=== PATIENT | male | born 1955 | race Caucasian/White ===

== ENCOUNTER 2021-12-07 21:44 | Inpatient (IN) | payer MEDICARE ==
[~2021-12-07] VITALS: Ht 170.2 cm; Wt 143.8 kg
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
[2021-12-07 22:30] VITALS: BP 144/99
[2021-12-07] MEDS ORDERED: MAG HYDROX/AL HYDROX/SIMETH 30 ML UDC PO PRN (23:00)
[2021-12-07] MEDS ORDERED: MAGNESIUM HYDROXIDE 30 ML UDC PO PRN (23:00)
[2021-12-07] MEDS ORDERED: BLOOD SUGAR DIAGNOSTIC 1 EACH STRIP IN ONE (23:30)
[2021-12-07] MEDS: clonazePAM 0.5 MG TABLET PO PRN (23:40)
--- NOTE | 2021-12-07 23:42 | NUR ---
GPS RN NOTE, PATIENT HAS A COMPLAINT OF FEELING ANXIOUS AND IS REQUESTING KLONOPIN AT THIS TIME. PATIENT VITAL SIGNS ARE STABLE. GAVE KLONOPIN 0.5MG PO Q4HR PRN ORDERED. WILL REASSESS FOR ANXIETY AND I WILL CONTINUE TO MONITOR THIS PATIENT WITH THE HELP OF STAFF.
[2021-12-08] MEDS: TEMAZEPAM 15 MG CAPSULE PO PRN (01:31)
--- NOTE | 2021-12-08 01:35 | NUR ---
GPS RN NOTE, PATIENT HAS A COMPLAINT OF NOT BEING ABLE TO SLEEP AND IS REQUESTING RESTORIL AT THIS TIME. PATIENT VITAL SIGNS ARE STABLE. GAVE RESTORIL 15MG PO HS PRN ORDERED. WILL REASSESS FOR INSOMNIA AND I WILL CONTINUE TO MONITOR THIS PATIENT WITH THE HELP OF STAFF.
[2021-12-08] MEDS: clonazePAM 0.5 MG TABLET PO PRN (03:37)
[2021-12-08 08:00] VITALS: BP 131/75
--- NOTE | 2021-12-08 08:02 | NUR ---
RN OPENING NOTE PATIENT AWAKE IN BED RESTING, A/O X 3. NO S/S OF PAIN NOTED AT THIS TIME. ON ROOM AIR, NO DISTRESS OR SHORTNESS OF BREATH NOTED. PATIENT IS COOPERATIVE AND COMPLIANT WITH MEDICATION. PATIENT DENIES SUICIDE IDEATION AND HOMICIDAL IDEATION AT THIS TIME. PATIENT HAS NO NEEDS AT THIS TIME. PATIENT EDUCATED ON THE USE OF THE CALL REMY. FALL AND SAFETY MEASURES IN PLACE, BED ALARM ON, BED IN LOW AND LOCK POSITION, CALL LIGHT AND TABLE WITHIN EASY REACH, SIDE RAILS UP X2. WILL CONTINUE TO MONITOR Q15 MIN. WITH THE HELP OF STAFF TO MAINTAIN SAFETY.
[2021-12-08] MEDS ORDERED: PNEUMOCOCCAL 23-VAL P-SAC VAC 0.5 ML VIAL SQ ONE (09:00)
--- NOTE | 2021-12-08 09:30 | NUR ---
RN-CO: Noted that patient is extremely demanding, he is entitled and has poor boundaries. He cannot wait and wants to things right away. He believes that he is a "doctor" so his demand should be granted right away. He is non redirectable and easily agitated.
[2021-12-08] MEDS ORDERED: DIVALPROEX SODIUM 125 MG TABLET.DR PO SCH (12:00)
[2021-12-08] MEDS ORDERED: OLANZAPINE 5 MG TABLET PO SCH (12:00)
[2021-12-08] MEDS: OLANZAPINE 5 MG TABLET PO SCH ×2 (12:55→17:22)
[2021-12-08] MEDS: DIVALPROEX SODIUM 125 MG TABLET.DR PO SCH ×2 (12:56→17:21)
--- NOTE | 2021-12-08 13:51 | NUR ---
RN-CO: Patient requested for cough medicine, Dr Taylor ordered Robitussin 5 mg q 6hr as needed, noted.
[2021-12-08] MEDS: GUAIFENESIN/CODEINE 10 ML UDC PO PRN ×2 (13:57→20:24)
[2021-12-08 16:00] VITALS: BP 105/60
--- NOTE | 2021-12-08 16:22 | NUR ---
RN NOTE PATIENT IS SITTING IN ACTIVITY ROOM, PATIENT IS SITTING ON THE BLUE CHAIRS. PATIENT WAS ADVISED NOT TO SIT ON THE BLUE CHAIRS BECAUSE THE WHEELS ARE UNABLE TO BE LOCK, ADVISE PATIENT TO SIT ON A DIFFERENT CHAIR BUT PATIENT REFUSED AND KEPT SITING ON THE BLUE CHAIRS, PATIENT STATED " I WANT TO SIT ON THIS CHAIR, IS GOOD FOR MY BACK, IM NOT A FALL RISK" PATIENT IS VERY UNCOOPERATIVE AND DEMANDING. WE WILL CONTINUE TO MONITOR.
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
--- NOTE | 2021-12-08 18:46 | NUR ---
RN CLOSING NOTE PATIENT AWAKE IN BED RESTING, A/O X 3, PATIENT IS VERY NEEDY AND DEMANDING. NO S/S OF PAIN NOTED AT THIS TIME. ON ROOM AIR, NO DISTRESS OR SHORTNESS OF BREATH NOTED. PATIENT IS COOPERATIVE AND COMPLIANT WITH MEDICATION. ALL SCHEDULE MEDICATIONS ADMINISTERED. PATIENT DENIES SUICIDE IDEATION AND HOMICIDAL IDEATION AT THIS TIME. PATIENT HAS NO NEEDS AT THIS TIME. PATIENT EDUCATED ON THE USE OF THE CALL REMY. FALL AND SAFETY MEASURES IN PLACE, BED ALARM ON, BED IN LOW AND LOCK POSITION, CALL LIGHT AND TABLE WITHIN EASY REACH, SIDE RAILS UP X2. WILL ENDORSE TO FIGHTER PILOT.
--- NOTE | 2021-12-08 20:25 | NUR ---
Pt c/o cough. Robitussin AC syrup 5 ml po prn given as ordered. Will continue to monitor.
[2021-12-08 21:01] VITALS: BP 144/78
--- NOTE | 2021-12-08 21:40 | NUR ---
Post 1 hr Robitussin AC syrup effective. No more coughing. Pt asleep in bed easy to arouse. Frequent visual check done for safety. Will continue to monitor. Will endorse to next shift.
[2021-12-09] MEDS: GUAIFENESIN/CODEINE 10 ML UDC PO PRN ×2 (02:34→13:54)
--- NOTE | 2021-12-09 02:34 | NUR ---
Pt c/o cough and request for Robitussin AC syrup. Robitussin AC syrup 5ml po prn given as ordered. Will continue to monitor.
--- NOTE | 2021-12-09 03:40 | NUR ---
Post 1 hr Robitussin AC syrup effective. No more cough. Pt asleep in bed easy to arouse. Frequent visual check done for safety. Will continue to monitor. Will endorse to next shift.
[2021-12-09 07:57] LABS: ALBUMIN 3.3 g/dL (3.4-5.0); BILIRUBIN,TOTAL 0.3 mg/dL (0.2-1.0); CALCIUM, SERUM 8.8 mg/dL (8.5-10.1); CREATININE 0.9 mg/dL (0.6-1.3); POTASSIUM 4.2 mmol/L (3.5-5.1); TOTAL PROTEIN, SERUM 7.1 g/dL (6.4-8.2)
[2021-12-09 08:00] VITALS: BP 127/69
[2021-12-09 08:06] LABS: BASOPHILS % (AUTO) 0.5 % (0.0-2.0); EOSINOPHILS % (AUTO) 8.8 % (0.0-6.0); HEMATOCRIT 43 % (39-51); HEMOGLOBIN 13.5 g/dL (13.5-17.5); LYMPHOCYTES # (AUTO) 1.6 K/uL (0.8-4.8); LYMPHOCYTES % (AUTO) 22.8 % (20.0-44.0); MEAN CORPUSCULAR HGB CONC 32 g/dl (31.0-36.0); MEAN CORPUSCULAR VOLUME 81 fL (80-96); MONOCYTES # (AUTO) 0.6 K/uL (0.1-1.30); MONOCYTES % (AUTO) 8.2 % (2.0-12.0); NEUTROPHILS # (AUTO) 4.2 K/uL (1.8-8.9); NEUTROPHILS % (AUTO) 59.7 % (43.0-81.0); PLATELET COUNT (AUTO) 327 K/uL (150-450); RED BLOOD CELL COUNT(AUTO) 5.25 MIL/uL (4.5-6.0)
[2021-12-09] MEDS: OLANZAPINE 5 MG TABLET PO SCH ×3 (08:47→17:21)
[2021-12-09] MEDS: DIVALPROEX SODIUM 125 MG TABLET.DR PO SCH ×3 (08:54→17:21)
--- NOTE | 2021-12-09 09:45 | NUR ---
RN NOTE PATIENT IS ANXIOUS AT TIMES BUT EASILY GOES DOWN. PATIENT VERBALIZE FRUSTRATION REGARDING, COMFINEMENT AND SAID HE WANTS TO TALK TO THE GRAIN DRIER OPERATOR. GRAIN DRIER OPERATOR DIDIER NOTIFIED. WILL CONTINUE TO MONITOR PATIENT. PROVIDED WITH CALM AND QUIET ENVIRONMENT.
--- NOTE | 2021-12-09 10:19 | NUR ---
RN NOTE SEEN BY MALINA LOPEZ
--- NOTE | 2021-12-09 10:39 | NUR ---
MARBELLA Initial Discharge Note: Pt is currently homeless and did not provide any information. Pt will possibly need placement. MARBELLA will work with the MD and pt to help coordinate appropriate discharge.
--- NOTE | 2021-12-09 10:39 | NUR ---
Treatment Plan: Pt refused to sign treatment plan and was verbally abusive towards this journalists and other writers.
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
--- NOTE | 2021-12-09 11:04 | NUR ---
SW Family Contact: SW attempted to contact pt's sister Roya ([phone]) and was unable to leave a voicemail at this time. SW attempted to contact pt's brother Kimberly ([phone]) and the number does not exist.
[2021-12-09] MEDS: clonazePAM 0.5 MG TABLET PO PRN (11:06)
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
--- NOTE | 2021-12-09 14:00 | NUR ---
RN NOTE PATIENT NOTED COUGHING AND REQUESTED FOR HIS COUGH MEDICATION. PATIENT WITH PRN MEDICATION FOR COUGH. MEDICATION GIVEN ORDERED. ENCOURAGED TO DO DEEP BREATHING EXERCISES. IN STABLE CONDITION.
--- NOTE | 2021-12-09 14:26 | NUR ---
RN NOTE PATIENT STOPPED COUGHING AND IS CURRENTLY SLEEPING ON HIS BED. IN STABLE CONDITION.
[2021-12-09 16:00] VITALS: BP 152/87
--- NOTE | 2021-12-09 19:03 | NUR ---
RN CLOSING NOTE PATIENT ASLEEP ON BED BUT WOKEN UP EASILY, PATIENT IS ALERT AND ORIENTED X 3. ON ROOM AIR TOLERATED WELL WITH NO SIGNS AND SYMPTOMS OF RESPIRATORY DISTRESS. ABLE TO MAKE NEEDS KNOWN. PATIENT DENIES ANY PAIN OR DISCOMFORT. PATIENT DENIES SUICIDE IDEATIONS AND HOMICIDAL IDEATIONS AT THIS TIME. PATIENT IS NEEDY, DEMANDING AND ARGUMENTATIVE AT TIMES. PATIENT EDUCATED ON THE USE OF THE CALL LIGHT. PATIENT BED SIDE RAILS ARE UP X 2 FOR SAFETY. PATIENT BED IS LOCKED, LOW POSITION. ENDORSED TO NEXT SHIFT FOR CONTINUITY OF CARE.
--- NOTE | 2021-12-09 19:38 | NUR ---
NURSES OPENING NOTE RECEIVED PATIENT ON BED, PATIENT IS ALERT AND ORIENTED X 3. ON ROOM AIR TOLERATED WELL WITH NO SIGNS AND SYMPTOMS OF RESPIRATORY DISTRESS. ABLE TO MAKE NEEDS KNOWN. PATIENT DENIES ANY PAIN OR DISCOMFORT. PATIENT DENIES SUICIDE IDEATIONS AND HOMICIDAL IDEATIONS AT THIS TIME. PATIENT EDUCATED ON THE USE OF THE CALL LIGHT. PATIENT BED SIDE RAILS ARE UP X 2 FOR SAFETY. PATIENT BED IS LOCKED, LOW POSITION. WILL CONTINUE TO MONITOR PATIENT.
[2021-12-09 20:00] VITALS: BP 129/77
[2021-12-09] MEDS: TEMAZEPAM 15 MG CAPSULE PO PRN (20:32)
[2021-12-10] MEDS: GUAIFENESIN/CODEINE 10 ML UDC PO PRN (02:35)
--- NOTE | 2021-12-10 06:16 | NUR ---
GPS NURSES CLOSING NOTES: PATIENT IS CURRENTLY LAYING ON BED, ASLEEP. PATIENT SLEPT 9HRS THIS SHIFT. NO S/S OF DISTRESS. RESPIRATION EVEN AND UNLABORED WITH EQUAL RISE AND FALL OF THE CHEST, ON ROOM AIR. ALL PATIENT CARE NEEDS HAVE BEEN MET ANTICIPATED. WILL CONTINUE TO MONITOR Q15 FOR SAFETY, MOOD AND BEHAVIOR AND ENDORSE TO AM SHIFT.
[2021-12-10 08:00] VITALS: BP 147/80
[2021-12-10] MEDS: OLANZAPINE 5 MG TABLET PO SCH ×3 (08:19→17:26)
[2021-12-10] MEDS: DIVALPROEX SODIUM 125 MG TABLET.DR PO SCH ×2 (08:20→17:25)
[2021-12-10] MEDS: clonazePAM 0.5 MG TABLET PO PRN (08:28)
--- NOTE | 2021-12-10 08:28 | NUR ---
GIVEN KLONOPIN FOR AGITATION.
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
--- NOTE | 2021-12-10 13:55 | NUR ---
resting in room,but making demands to have phone charged and various other things.
--- NOTE | 2021-12-10 15:59 | NUR ---
SW Note: Pt is verbally abusive and makes inappropriate comments towards this real estate underwriter and is very argumentative. He is delusional and paranoid stating that he is a millionaire and a doctor. He is very entitled and demanding.
[2021-12-10 16:00] VITALS: BP 123/78
[2021-12-10 20:00] VITALS: BP 144/84
[2021-12-10] MEDS: TEMAZEPAM 15 MG CAPSULE PO PRN (21:45)
--- NOTE | 2021-12-10 21:45 | NUR ---
RN NOTES PT WAS ASKING FOR SLEEPING PILLS RESTORIL 15MG. WAS GIVEN.NO SIGN A/R NOTED.
[2021-12-11] MEDS: ACETAMINOPHEN 325 MG TABLET PO PRN (03:51)
[2021-12-11 08:00] VITALS: BP 133/98
--- NOTE | 2021-12-11 08:10 | NUR ---
Police Station: SW left a voicemail for officer Mj ([phone], ext: [phone]), report #[phone] stating pt will be discharged 12/13.
[2021-12-11] MEDS: GUAIFENESIN/CODEINE 10 ML UDC PO PRN (08:21)
[2021-12-11] MEDS: OLANZAPINE 5 MG TABLET PO SCH ×3 (08:22→16:43)
[2021-12-11] MEDS: DIVALPROEX SODIUM 125 MG TABLET.DR PO SCH ×2 (08:22→16:43)
--- NOTE | 2021-12-11 11:01 | NUR ---
Police Station: MARBELLA spoke with officer Mj ([phone], ext: [phone]), [phone]) the number he had called with stated that the day of discharge anyone can cannot the station ([phone]) to coordinate the dc.
--- NOTE | 2021-12-11 11:48 | NUR ---
SW Note: SW met with pt due to pt being anxious about his discharge. SW attempted to explain 5150/5250 process and pt was unable to understand his situation. SW attempted to explain multiple times and he appeared to be understanding.
[2021-12-11 16:00] VITALS: BP 144/94
[2021-12-11 20:00] VITALS: BP 155/92
[2021-12-12 08:00] VITALS: BP 142/74
[2021-12-12] MEDS: DIVALPROEX SODIUM 125 MG TABLET.DR PO SCH ×2 (08:04→16:17)
[2021-12-12] MEDS: OLANZAPINE 5 MG TABLET PO SCH ×3 (08:04→16:17)
--- NOTE | 2021-12-12 09:45 | NUR ---
RN Notes: Received pt. awake in his room, responsive to staffs and hyperverbal. Ate 100% for breakfast, and compliant on meds. Pt. is needy, hyperverbal, demanding, easily got irritated and interacts fully to staffs. Encouraged to verbalize feelings and motivated to attend group activity. Pt. seen by the dietitian regarding his diet. Needs attended and will continue to monitor for safety.
--- NOTE | 2021-12-12 14:34 | NUR ---
Pt. filed for a Writ of [place] and faxed to the court
--- NOTE | 2021-12-12 14:47 | NUR ---
Court Hearing: Patient's court hearing for 7860 was today and it was upheld for GD.
--- NOTE | 2021-12-12 14:47 | NUR ---
Court Notification: Pt does not want this fiction and nonfiction prose writer to contact anyone for his 9097 hearing today.
--- NOTE | 2021-12-12 15:58 | NUR ---
SW Note: Pt is very verbally abusive towards this telegraphic typewriter operator chief and makes inappropriate comments. He states this telegraphic typewriter operator chief is a child. He states this writers degree is "basic degree". He is very demanding and uncooperative.
[2021-12-12 16:00] VITALS: BP 122/71
--- NOTE | 2021-12-12 19:30 | NUR ---
GPS RN NOTE, RECEIVED PATIENT AWAKE AND IN BED, NO S/S OR COMPLAINTS OF PAIN AT THIS TIME. PATIENT IS DISPLAYING NO S/S OF APPARENT DISTRESS AT THIS TIME. PATIENT BREATHING IS UNLABORED WITH EQUAL RISE AND FALL OF THE CHEST. PATIENT IS ALERT AND ORIENTED X 2-3 ON ROOM AIR WITH A SPO2 98%. PATIENT IS COMPLIANT WITH MEDICATIONS, ANXIOUS, ARGUMENTATIVE, HYPERVERBAL, AND IS COOPERATIVE. PATIENT DENIES SUICIDAL AND HOMICIDAL IDEATIONS AT THIS TIME. PATIENT ASSISTED WITH TURNING AND REPOSITIONING Q2HR AND PRN FOR COMFORT AND CIRCULATION. PATIENT HAS NO NEEDS AT THIS TIME. PATIENT EDUCATED ON THE USE OF THE CALL REMY. PATIENT BED SIDE RAILS UP X 2 FOR SAFETY. PATIENT BED IS LOCKED, LOW, WITH BED ALARM ON. WILL CONTINUE TO MONITOR THIS PATIENT Q15 MINUTES WITH THE HELP OF STAFF TO MAINTAIN SAFETY.
[2021-12-12 20:00] VITALS: BP 121/71
[2021-12-13 08:00] VITALS: BP 128/80
[2021-12-13] MEDS: DIVALPROEX SODIUM 125 MG TABLET.DR PO SCH ×2 (08:06→16:10)
[2021-12-13] MEDS: OLANZAPINE 5 MG TABLET PO SCH ×2 (08:06→21:19)
--- NOTE | 2021-12-13 08:55 | NUR ---
Police Station: MARBELLA contacted police station ([phone]) and spoke with officer on the call who stated that for report [id number], who spoke with lever tender who stated that their has been a mix up and that the pt is not going to get arrest. MARBELLA also notified officer Mj ([phone], ext: [phone]), [phone]) and left a detailed voicemail that pt will not be arrested because he had given this information.
--- NOTE | 2021-12-13 08:57 | NUR ---
MARBELLA Note: SW spoke with pt in regards to his discharge plan. SW offered pt placement options and he stated that he is "rich" and that he has a place to go too. Pt stated he would want to go to [facility] located at [address] [place] [address]; ([phone]). He stated that he will provide his own uber/lyft ride and does not need a ride from the hospital.
[2021-12-13] MEDS ORDERED: OLANZAPINE 5 MG TABLET PO ONE (09:00)
[2021-12-13] MEDS: HALOPERIDOL 5 MG TABLET PO SCH ×2 (09:22→16:10)
--- NOTE | 2021-12-13 10:00 | NUR ---
RN Notes: Received pt. awake in bed, responsive to staffs. Ate 100% for breakfast. Pt. is less needy and demanding, pt. still telling the staffs that he has a lot of money and he is a doctor. Pt. seen by MALINA Mahajan and with new orders and pt. is compliant on the meds including the new med and the adjusted med. Encouraged to verbalize feelings and motivated to attend group activity. Needs attended and will continue to monitor for safety.
--- NOTE | 2021-12-13 10:59 | NUR ---
MARBELLA Coordination of Care: Patient referred for intake evaluation (psychiatry) at [facility] located at [address] [place], [place] [id number]; ([phone]) on December 20 at 8AM.
--- NOTE | 2021-12-13 11:45 | NUR ---
Writ: Pt filed for writ yesterday 12/12/2021 and Josephine community artist confirmed writ will be Thursday12/16/2021.
--- NOTE | 2021-12-13 14:05 | NUR ---
Dr. Burger made aware that the schedule for Writ of [facility] will be on Saturday, December 16 @ 8:30 AM.
[2021-12-13 16:00] VITALS: BP 130/89
--- NOTE | 2021-12-13 19:30 | NUR ---
GPS RN NOTE, RECEIVED PATIENT AWAKE AND IN BED, NO S/S OR COMPLAINTS OF PAIN AT THIS TIME. PATIENT IS DISPLAYING NO S/S OF APPARENT DISTRESS AT THIS TIME. PATIENT BREATHING IS UNLABORED WITH EQUAL RISE AND FALL OF THE CHEST. PATIENT IS ALERT AND ORIENTED X 2-3 ON ROOM AIR WITH A SPO2 98%. PATIENT IS COMPLIANT WITH MEDICATIONS, ANXIOUS, ARGUMENTATIVE, HYPERVERBAL, GRANDIOSE, NEEDY, AND IS COOPERATIVE. PATIENT DENIES SUICIDAL AND HOMICIDAL IDEATIONS AT THIS TIME. PATIENT ASSISTED WITH TURNING AND REPOSITIONING Q2HR AND PRN FOR COMFORT AND CIRCULATION. PATIENT HAS NO NEEDS AT THIS TIME. PATIENT EDUCATED ON THE USE OF THE CALL REMY. PATIENT BED SIDE RAILS UP X 2 FOR SAFETY. PATIENT BED IS LOCKED, LOW, WITH BED ALARM ON. WILL CONTINUE TO MONITOR THIS PATIENT Q15 MINUTES WITH THE HELP OF STAFF TO MAINTAIN SAFETY.
[2021-12-13 20:23] VITALS: BP 121/67
[2021-12-14 08:00] VITALS: BP 132/93
[2021-12-14] MEDS: HALOPERIDOL 5 MG TABLET PO SCH ×2 (08:06→16:10)
[2021-12-14] MEDS: OLANZAPINE 5 MG TABLET PO SCH ×2 (08:06→16:10)
[2021-12-14] MEDS: DIVALPROEX SODIUM 125 MG TABLET.DR PO SCH ×2 (08:07→16:09)
--- NOTE | 2021-12-14 09:30 | NUR ---
RN Notes: Received pt. awake in bed, responsive to staffs. Ate 100% for breakfast.and compliant on meds. Pt. is loud and hyperverbal, needy at this time. Encouraged to verbalize feelings and motivated attend group activity noted. Needs attended, no distress and no agitation noted. Will continue to monitor for safety.
[2021-12-14 16:00] VITALS: BP 139/68
--- NOTE | 2021-12-14 19:30 | NUR ---
GPS RN NOTE, RECEIVED PATIENT AWAKE AND IN BED, NO S/S OR COMPLAINTS OF PAIN AT THIS TIME. PATIENT IS DISPLAYING NO S/S OF APPARENT DISTRESS AT THIS TIME. PATIENT BREATHING IS UNLABORED WITH EQUAL RISE AND FALL OF THE CHEST. PATIENT IS ALERT AND ORIENTED X 2-3 ON ROOM AIR WITH A SPO2 92%. PATIENT IS COMPLIANT WITH MEDICATIONS, ANXIOUS, ARGUMENTATIVE, HYPERVERBAL, GRANDIOSE, NEEDY, AND IS COOPERATIVE. PATIENT DENIES SUICIDAL AND HOMICIDAL IDEATIONS AT THIS TIME. PATIENT ASSISTED WITH TURNING AND REPOSITIONING Q2HR AND PRN FOR COMFORT AND CIRCULATION. PATIENT HAS NO NEEDS AT THIS TIME. PATIENT EDUCATED ON THE USE OF THE CALL REMY. PATIENT BED SIDE RAILS UP X 2 FOR SAFETY. PATIENT BED IS LOCKED, LOW, WITH BED ALARM ON. WILL CONTINUE TO MONITOR THIS PATIENT Q15 MINUTES WITH THE HELP OF STAFF TO MAINTAIN SAFETY.
[2021-12-14 20:08] VITALS: BP_SYST 103; BP_SYST 138; BP_DIAS 52; BP_DIAS 99
[2021-12-15 08:00] VITALS: BP 124/80
[2021-12-15] MEDS: OLANZAPINE 5 MG TABLET PO SCH ×2 (08:17→17:12)
[2021-12-15] MEDS: HALOPERIDOL 5 MG TABLET PO SCH ×2 (08:17→17:12)
[2021-12-15] MEDS: DIVALPROEX SODIUM 125 MG TABLET.DR PO SCH ×2 (08:17→17:12)
[2021-12-15 16:00] VITALS: BP 127/72
[2021-12-15 20:00] VITALS: BP 133/62
[2021-12-15 20:33] VITALS: BP 133/62
--- NOTE | 2021-12-15 23:07 | NUR ---
RN notes Pt is complaining of back pain and requesting pain med. administered tylenol 650 mg/po/prn as ordered. VS is stable. will continue to monitor.
[2021-12-15] MEDS: ACETAMINOPHEN 325 MG TABLET PO PRN (23:08)
[2021-12-16 08:00] VITALS: BP 122/88
--- NOTE | 2021-12-16 08:07 | NUR ---
SW Discharge Note: Patient chooses to be discharged to [facility] located at [address] [place] [address]; ([phone]). Patient stated that he will order his own Uber. Patient does not have any supportive contact at this time. Patient is alert and oriented x3. Patient denies suicidal or homicidal ideation. Patient denies visual/auditory hallucinations. Patient will follow up with (Primary Doctor) Dr. Waldo Camejo located at [address] [place] [address]; ([phone]). Patient referred for intake evaluation (psychiatry) at [facility] located at [address] [place] [address]; ([phone]) on December 20 at 8AM. Patient refused to sign the homeless waiver upon discharge and a copy was placed in the chart. Homeless resources were provided and include [address] information line for shelters and homeless resources. A copy of all resources given to patient was also placed in the chart. Patient presents with euthymic mood and congruent affect.
[2021-12-16] MEDS: OLANZAPINE 5 MG TABLET PO SCH (08:41)
[2021-12-16] MEDS: DIVALPROEX SODIUM 125 MG TABLET.DR PO SCH (08:41)
[2021-12-16] MEDS: HALOPERIDOL 5 MG TABLET PO SCH (08:42)
--- NOTE | 2021-12-16 11:00 | NUR ---
Patient discharged to [facility] .Compliant with medications ,cooperative with treatment plans Patient denies SI/HI/AVH .Behavior improved ,psychiatric tx plans met ,medical tx plans differed for for continual monitoring .Educated pt about after care plan (Exit -care)and copy provided Returned personal belongings to patient med list given and explained to patient able to verbalize understanding, prescription given and explained able to verbalize understanding .Vs stable ,no c/o pain .Patient seen by JESSICA OLIVIA covering and Violeta DEVELOPMENT EXECUTIVE with discharge orders .Patient discharge at 11 am with TAXI .
== END 2021-12-16 11:00 | disposition home or self-care (01) | DRG 885 ==
LOC: GPS 21:44
PROVIDERS: ADMIT Nurse Practitioner Psychiatric/Mental Health; ATTEND Nurse Practitioner Acute Care
DX: F39 Unspecified mood [affective] disorder (principal); Z68.42 Body mass index [BMI] 45.0-49.9, adult; F23 Brief psychotic disorder; E44.0 Moderate protein-calorie malnutrition; F29 Unspecified psychosis not due to a substance or known physiological condition; F41.9 Anxiety disorder, unspecified; E66.01 Morbid (severe) obesity due to excess calories; F22 Delusional disorders; Z73.6 Limitation of activities due to disability; F32.A Depression, unspecified; Z59.01 Sheltered homelessness; Z79.899 Other long term (current) drug therapy
CPT/HCPCS: 36415; 80053-TC; 80061-TC; 80164-TC; 82962-TC; 85025-TC; 90732